=== PATIENT | female | born 1985 | race Caucasian/White ===

== ENCOUNTER 2018-08-02 10:03 | Emergency (ER) | payer SELFPAY ==
[~2018-08-02] VITALS: Ht 170.2 cm; Wt 86.0 kg
[~2018-08-02 10:03] MED LIST: OSEL75CA PO
--- NOTE | 2018-08-02 10:14 | PHYS DOC ---
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 EMS reports some seizure-like activity upon arrival. Patient was subsequently slightly confused which is now resolved. Denies history of prior seizures. Denies tongue laceration. Reports prior to this morning was feeling well. Patient reports she cannot recall events after patient was sitting on her sitting on the couch. He remembers waking up and noting paramedics and fire fighters helping her out to the ambulance. Patient denies any current drug or alcohol use. Reports she feels "weak and tired " at this time. Denies . Reports history of IUD. Review of Systems Review of Systems Constitutional: Denies fever or chills [] Eyes: Denies change in visual acuity, redness, or eye pain [] HENT: Denies nasal congestion or sore throat [] Respiratory: Denies cough or shortness of breath [] Cardiovascular: Denies chest pain or palpitation GI: Denies abdominal pain, nausea, vomiting, or diarrhea [] : Denies dysuria or hematuria [] Musculoskeletal: Denies back pain or joint pain [] Integument: Denies rash or skin lesions [] Neurologic: Denies headache, focal weakness or sensory changes; reports confusion Complete systems were reviewed and found to be within normal limits, except as documented in this note. Allergies Allergies Allergies Coded Allergies Type Severity Reaction Last Updated Verified morphine Allergy Intermediate rash 05/23/13 Yes Uncoded Allergies Type Severity Reaction Last Updated Verified NARCOTIC Adverse Reaction Unknown 06/09/15 Physical Exam Physical Exam Constitutional: Well developed, well nourished, no acute distress, non-toxic appearance. [] HENT: Normocephalic, atraumatic, bilateral TMs normal, oropharynx moist, tongue normal and without laceration Eyes: PERRL, EOMI, conjunctiva normal, no nystagmus Neck: Normal range of motion, no tenderness, supple, no meningeal signs Cardiovascular: Tachycardia, no murmur [] Lungs & Thorax: Bilateral breath sounds clear to auscultation [] Abdomen: Soft, no tenderness Skin: Warm, dry, no erythema, no rash. [] Extremities: No tenderness, ROM intact, no edema. [] Neurologic: Alert and oriented X 3, normal motor function, normal sensory function, no focal deficits noted. [] Psychologic: Affect normal, judgement normal, mood normal. [] EKG EKG @1043 Sinus tachycardia at 102bpm, NO ST elevation Radiology/Procedures Radiology/Procedures PROCEDURE: CT HEAD WO CONTRAST CT HEAD WO CONTRAST Clinical indications: seizure today COMPARISON: None available. Technique: Noncontrast axial cross sectional scanning of the head was performed. PQRS compliance Statement One or more of the following individualized dose reduction techniques were utilized for this study: 1. Automated exposure control 2. Adjustment of the mA and/or kV according to patient size 3. Use of iterative reconstruction technique Findings: No acute intracranial hemorrhage or midline shift or mass-effect or hydrocephalus or extra-axial fluid collection is seen. No focal hypodense area or sulci effacement is seen to indicate an acute infarct or edema radiographically. No skull fracture or pneumocephalus is seen. No opacification of the mastoid sinuses or the paranasal sinuses is seen. The maxillary sinuses are not completely seen in this study. Impression: No acute intracranial abnormality is seen. Electronically signed by: Ed Dalton MD (08/02/2018 10:39 AM) [id number] Course & Med Decision Making Course & Med Decision Making Pertinent Labs and Imaging studies reviewed. (See chart for details) Patient presents with concern for possible seizure like activity prior to arrival. Patient cannot recall full events. No signs of tongue laceration. Denies incontinence. No history of prior seizures. Patient currently neurologically intact. Labs obtained and posted to chart. Lactic acid slightly elevated. CT head without acute process. IVF hydration given. EKG stable. Orthostatic vital signs stable. Cannot fully exclude seizure. Patient stable for discharge with outpatient follow-up with PCP/neurologist. Neurology referral provided. Discussed findings and plan with patient and family , who acknowledge understanding and agreement. Dragon Disclaimer Dragon Disclaimer This electronic medical record was generated, in whole or in part, using a voice recognition dictation system. Departure Departure: Impression: Primary Impression: Seizure-like activity Additional Impression: Lactic acidosis Disposition: 01 HOME, SELF-CARE Condition: STABLE Referrals: ELIEL DISLA MD (PCP) ESTELLA KING MD Patient Instructions: Seizure, Adult, [id number] Additional Instructions: Discontinue use of tramadol as this can lower your seizure threshold. Also you must refrain from driving until cleared by your doctor or a neurologist. Scripts Butalb/Acetaminophen/Caffeine ([id number] 50-325-40) 1 Each Tablet 1 EACH PO Q6HRS PRN for HEADACHE, #14 TAB Prov: CATRACHITO VALENZUELA DO 08/02/18 Problem Qualifiers CATRACHITO VALENZUELA DO Aug 02, 2018 10:14
[2018-08-02] MEDS ORDERED: IV NORMAL SALINE 1,000ML 1,000 ML IV ONE ×2 (10:15→11:30)
[2018-08-02 10:39] LABS: BASO % 1 % (0-3); EOS # 0.1 x10^3/uL (0.0-0.7); EOS % 3 % (0-3); HEMATOCRIT 40.1 % (36.0-47.0); HEMOGLOBIN 13.5 g/dL (12.0-15.5); LYMPH # 1.3 x10^3/uL (1.0-4.8); LYMPH % 29 % (24-48); MEAN CORPUSCULAR HEMOGLOBIN 30 pg (25-35); MEAN CORPUSCULAR HGB CONC 34 g/dL (31-37); MEAN CORPUSCULAR VOLUME 89 fL (79-100); MONO # 0.4 x10^3/uL (0.0-1.1); MONO % 10 % (0-9); NEUT # 2.6 x10^3uL (1.8-7.7); NEUT % 58 % (31-73); PLATELET COUNT 204 x10^3/uL (140-400); RED BLOOD COUNT 4.53 x10^6/uL (3.50-5.40); RED CELL DISTRIBUTION WIDTH 13.3 % (11.5-14.5); WHITE BLOOD COUNT 4.5 x10^3/uL (4.0-11.0)
[2018-08-02] MEDS ORDERED: ONDANSETRON PF 4 MG/2 ML VIAL. IV ONE (10:40)
--- NOTE | 2018-08-02 10:42 | RAD ---
CT HEAD WO CONTRAST Clinical indications: seizure today COMPARISON: None available. Technique: Noncontrast axial cross sectional scanning of the head was performed. PQRS compliance Statement One or more of the following individualized dose reduction techniques were utilized for this study: 1. Automated exposure control 2. Adjustment of the mA and/or kV according to patient size 3. Use of iterative reconstruction technique Findings: No acute intracranial hemorrhage or midline shift or mass-effect or hydrocephalus or extra-axial fluid collection is seen. No focal hypodense area or sulci effacement is seen to indicate an acute infarct or edema radiographically. No skull fracture or pneumocephalus is seen. No opacification of the mastoid sinuses or the paranasal sinuses is seen. The maxillary sinuses are not completely seen in this study. Impression: No acute intracranial abnormality is seen. Electronically signed by: Ed Dalton MD (08/02/2018 10:39 AM) [id number]
[2018-08-02 10:53] LABS: ALBUMIN 3.4 g/dL (3.4-5.0); ALBUMIN/GLOBULIN RATIO 1.1 (1.0-1.7); CALCIUM 8.6 mg/dL (8.5-10.1); CREATININE 0.8 mg/dL (0.6-1.0); GFR 82.6; MAGNESIUM 1.8 mg/dL (1.8-2.4); POTASSIUM 3.5 mmol/L (3.5-5.1); TOTAL BILIRUBIN 0.3 mg/dL (0.2-1.0); TOTAL PROTEIN 6.6 g/dL (6.4-8.2)
--- NOTE | 2018-08-02 11:40 | EKG ---
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
[2018-08-02] MEDS ORDERED: KETOROLAC 15 MG/ML VIAL. IV ONE (11:45)
[2018-08-02 12:14] LABS: AMPHETAMINE/METHAMPHETAMINE POS (NEG); BARBITURATES NEG (NEG); BENZODIAZEPINES NEG (NEG); CANNABINOIDS NEG (NEG); COCAINE NEG (NEG); METHADONE NEG (NEG); OPIATES NEG (NEG); PHENCYCLIDINE NEG (NEG)
[2018-08-02 12:18] LABS: BACTERIA,URINE FEW /HPF (0-FEW); BILIRUBIN,URINE NEG (NEG); CLARITY,URINE CLEAR; COLOR,URINE YELLOW; GLUCOSE,URINE NEG (NEG); NITRITE,URINE NEG (NEG); RBC,URINE RARE /HPF (0-2); SQUAMOUS EPITHELIAL CELL,UR MOD /LPF; UROBILINOGEN,URINE 0.2 mg/dL (0.2 mg/dL); WBC,URINE RARE /HPF (0-4)
[2018-08-02 12:24] VITALS: BP 122/65
[2018-08-02] MEDS ORDERED: BUTA1TAB23 PO (12:30)
[2018-08-02] MEDS ORDERED: BUTALB/APAP/CAFEIN 50/325/40MG TABLET. PO ONE (12:45)
== END 2018-08-02 12:44 | disposition home or self-care (01) ==
LOC: ER 10:03
DX: R56.9 Unspecified convulsions (principal); E87.2 Acidosis; R41.0 Disorientation, unspecified; G89.29 Other chronic pain; M54.89 Other dorsalgia; Z87.891 Personal history of nicotine dependence; Z88.5 Allergy status to narcotic agent
CPT/HCPCS: 36415; 70450; 80053; 80307; 81001; 81025; 82550; 83605; 83735; 85025; 93005; 96361; 96374; 96375; 99284; G0480; J1885; J2405; J7030

== ENCOUNTER 2018-08-04 17:33 | Emergency (ER) | payer OTHER ==
[~2018-08-04] VITALS: Ht 167.6 cm; Wt 81.6 kg
[~2018-08-04 17:33] MED LIST changes: +BUTA1TAB23 PO
--- NOTE | 2018-08-04 17:42 | ED.ADGEN ---
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 I had a seizure the other day for no reason.. I was told I was shaking.. foaming at mouth.. had just passed out and hit my head.....Family said I was out of it for more 1/2 hour... they did a work up here.. that was on the .. but I continue to have a headache, dizzy, . .. I used to do drugs.. but have not for over 5 yrs... It just that I am worried. about me headache.."..or I ve got some changes in my brain..." HPI HPI Patient is a 32 year old female who presents with above hx with complaints of persistent headache, nausea, and dizziness, malaise since seizure on 08/02. Patient has had some coughing that has been nonproductive. Patient evaluated here at [facility] at that time CT did not show any acute findings. Patient does have poorly remote history of polysubstance abuse. Reports that her HIV checks have been negative. Patient denies any history of DVTs or pulmonary embolisms. Patient denies any cardiac history. Patient does not remember since before her seizure event. No recent travel. No specific ill contacts. Headache is somewhat generalized. Patient has had some muscle spasms and neck since the . There is a family history of her father late in lifeDeveloped DVTs coagulopathy CVAs pulmonary embolisms. Review of Systems Review of Systems Constitutional: Denies fever or chills [] Eyes: Denies change in visual acuity, redness, or eye pain [] HENT: Denies nasal congestion or sore throat [] Respiratory: Denies cough or shortness of breath [] Cardiovascular: No additional information not addressed in HPI [] GI: Denies abdominal pain, nausea, vomiting, bloody stools or diarrhea [] : Denies dysuria or hematuria [] Musculoskeletal: Denies back pain or joint pain [] Integument: Denies rash or skin lesions [] Neurologic: Complains of headache, and dizziness. Denies focal weakness or sensory changes [] Endocrine: Denies polyuria or polydipsia [] All other systems were reviewed and found to be within normal limits, except as documented in this note. Family History Family History Father had coagulopathy late in life. Current Medications Current Medications Current Medications Medications (Trade) Dose Ordered Sig/Morgan Start Time Stop Time Status Last Admin Dose Admin Acetaminophen (Tylenol) 1,000 mg 1X ONCE 08/04/18 20:00 08/04/18 20:01 DC 08/04/18 19:58 1,000 MG Info (Do NOT chart on this entry -- for MONITORING) 1 each PRN DAILY PRN 08/04/18 22:45 08/05/18 00:27 DC Iohexol (Omnipaque 350 Mg/ml) 100 ml 1X ONCE 08/04/18 22:45 08/04/18 22:46 DC 08/04/18 22:47 100 ML Ketorolac Tromethamine (Toradol Im) 60 mg 1X ONCE 08/04/18 23:45 08/04/18 23:46 DC 08/04/18 23:45 60 MG Lactated Ringer's 1,000 ml @ 1,000 mls/hr Q1H 08/04/18 18:56 08/04/18 19:55 DC 08/04/18 19:23 1,000 MLS/HR Lorazepam (Ativan) 2 mg 1X ONCE 08/05/18 00:15 08/05/18 00:16 DC Ondansetron HCl (Zofran) 8 mg 1X ONCE 08/04/18 20:30 08/04/18 20:31 DC 08/04/18 20:31 8 MG See nursing for home meds. Allergies Allergies Allergies Coded Allergies Type Severity Reaction Last Updated Verified morphine Allergy Intermediate rash 08/04/18 Yes Uncoded Allergies Type Severity Reaction Last Updated Verified NARCOTIC Adverse Reaction Unknown 06/09/15 Physical Exam Physical Exam Constitutional: Well developed, well nourished, no acute distress, non-toxic appearance. [] HENT: Normocephalic, atraumatic, bilateral external ears normal, oropharynx moist, no oral exudates, nose normal. [] Eyes: PERRLA, EOMI, conjunctiva normal, no discharge. [] Neck: Normal range of motion, no tenderness, supple, no stridor. [] Cardiovascular:Heart rate regular rhythm, no murmur [] Lungs & Thorax: Bilateral breath sounds at apexes scattered wheezes on auscultation [] Abdomen: Bowel sounds normal, soft, no tenderness, no masses, no pulsatile masses. []Old surgery scars. Skin: Warm, dry, no erythema, no rash. [Has multiple areas of bony points bruising on skin. Appears to be old. Does have findings of old IV injection scars. Back: No tenderness, no CVA tenderness. [] Extremities: Left knee tenderness, no cyanosis, no clubbing, ROM intact, left knee edema. [] Does have findings of tenderness in left knee with obvious ecchymosis. Ligaments appear to be generally stable. There is pain with range of motion but patient is ambulatory without difficulty. No cording appreciated. Neurologic: Alert and oriented X 3, normal motor function, normal sensory function, no focal deficits noted. []DTRs +2 at patella and brachial. 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 No drift. Psychologic: Affect anxious, judgement normal, mood normal. [] Current Patient Data Vital Signs Vital Signs Date Time Temp Pulse Resp B/P (MAP) Pulse Ox O2 Delivery O2 Flow Rate FiO2 08/04/18 20:33 81 18 138/79 (98) 100 Room Air 08/04/18 19:16 98.0 Lab Results Laboratory Tests Test 08/04/18 18:25 08/04/18 18:35 08/04/18 18:55 08/04/18 19:10 Prothrombin Time 9.5 SEC (9.4-11.4) Prothrombin Time INR 1.0 (0.9-1.1) PTT 24 SEC (23-33) D-Dimer (Emely) 0.90 mg/L (0.00-0.50) H White Blood Count 6.2 x10^3/uL (4.0-11.0) Red Blood Count 4.53 x10^6/uL (3.50-5.40) Hemoglobin 13.8 g/dL (12.0-15.5) Hematocrit 40.8 % (36.0-47.0) Mean Corpuscular Volume 90 fL (79-100) Mean Corpuscular Hemoglobin 30 pg (25-35) Mean Corpuscular Hemoglobin Concent 34 g/dL (31-37) Red Cell Distribution Width 13.6 % (11.5-14.5) Platelet Count 219 x10^3/uL (140-400) Neutrophils (%) (Auto) 60 % (31-73) Lymphocytes (%) (Auto) 28 % (24-48) Monocytes (%) (Auto) 8 % (0-9) Eosinophils (%) (Auto) 4 % (0-3) H Basophils (%) (Auto) 1 % (0-3) Neutrophils # (Auto) 3.7 x10^3uL (1.8-7.7) Lymphocytes # (Auto) 1.7 x10^3/uL (1.0-4.8) Monocytes # (Auto) 0.5 x10^3/uL (0.0-1.1) Eosinophils # (Auto) 0.3 x10^3/uL (0.0-0.7) Basophils # (Auto) 0.0 x10^3/uL (0.0-0.2) Erythrocyte Sedimentation Rate 8 (0-25) Troponin I Quantitative < 0.017 ng/mL (0-0.055) Sodium Level 142 mmol/L (136-145) Potassium Level 3.9 mmol/L (3.5-5.1) Chloride Level 106 mmol/L (98-107) Carbon Dioxide Level 30 mmol/L (21-32) Anion Gap 6 (6-14) Blood Urea Nitrogen 6 mg/dL (7-20) L Creatinine 0.7 mg/dL (0.6-1.0) Estimated GFR (Cockcroft-Gault) 96.4 Glucose Level 81 mg/dL (70-99) Calcium Level 8.5 mg/dL (8.5-10.1) Magnesium Level 1.8 mg/dL (1.8-2.4) Total Bilirubin 0.1 mg/dL (0.2-1.0) L Direct Bilirubin 0.1 mg/dL (0.0-0.2) Aspartate Amino Transferase (AST) 19 U/L (15-37) Alanine Aminotransferase (ALT) 16 U/L (14-59) Alkaline Phosphatase 73 U/L (46-116) Creatine Kinase 52 U/L (26-192) TP-Cco-L-Type Natriuretic Peptide 18 pg/mL (0-124) Total Protein 6.4 g/dL (6.4-8.2) Albumin 3.1 g/dL (3.4-5.0) L Lipase 75 U/L (73-393) Test 08/04/18 19:20 08/04/18 19:49 Urine Collection Type Unknown Urine Color Yellow Urine Clarity Clear Urine pH 7.0 Urine Specific [place] 1.010 Urine Protein Neg (NEG-TRACE) Urine Glucose (UA) Neg mg/dL (NEG) Urine Ketones (Stick) Trace mg/dL (NEG) Urine Blood Neg (NEG) Urine Nitrite Neg (NEG) Urine Bilirubin Neg (NEG) Urine Urobilinogen Dipstick 0.2 mg/dL (0.2 mg/dL) Urine Leukocyte Esterase Neg (NEG) Urine RBC 0 /HPF (0-2) Urine WBC 0 /HPF (0-4) Urine Squamous Epithelial Cells Few /LPF Urine Bacteria 0 /HPF (0-FEW) Urine Opiates Screen Neg (NEG) Urine Methadone Screen Neg (NEG) Urine Barbiturates Pos (NEG) Urine Phencyclidine Screen Neg (NEG) Urine Amphetamine/Methamphetamine Pos (NEG) Urine Benzodiazepines Screen Neg (NEG) Urine Cocaine Screen Neg (NEG) Urine Cannabinoids Screen Neg (NEG) Urine Ethyl Alcohol Neg (NEG) POC Urine HCG, Qualitative hcg negative (Negative) EKG EKG My interpretation of EKG shows sinus rhythm at rate 76/m[]. Has some nonspecific contour abnormalities in the anterior lateral leads. But no findings acute STEMI of contralateral changes Radiology/Procedures Radiology/Procedures I interpretation chest x-ray shows no acute cardio pulmonary findings. CT of head shows no acute interval changes. No shift, mass, edema, bleed, or fracture. See formal report when available. CT of chest shows no pulmonary embolism. Does have findings of suspect aspiration and right upper lobe. Patient does have an abnormality in the course of her right subclavian which passes posterior to her esophagus. See formal report when available. Course & Med Decision Making Course & Med Decision Making Pertinent Labs and Imaging studies reviewed. (See chart for details). Patient follow-up primary care. Patient not to drive until follow-up with neurology in primary care. Patient not then brought the involving has just activity for seizure disorder. Patient avoid any drug use. Patient return if any concerns. Must keep follow-ups. [] Final Impression Final Impression 1. Hx Seizure 2. Hx. Head Injury 3. Post Concussion Syndrome 4. Aspiration Pneumonitis 5. Mild elevation in d-dimer 0.90-suspect related to bruising on 6. Drug screen positive for amphetamine. [] Dragon Disclaimer Dragon Disclaimer This electronic medical record was generated, in whole or in part, using a voice recognition dictation system. Dragon Disclaimer This chart was dictated in whole or in part using Voice Recognition software in a busy, high-work load, and often noisy Emergency Department environment. It may contain unintended and wholly unrecognized errors or omissions. Discharge Summary Visit Information Final Diagnosis Problems Medical Problems: (1) Concussion Status: Acute (2) Seizure Status: Acute Brief Hospital Course Allergies Allergies Coded Allergies Type Severity Reaction Last Updated Verified morphine Allergy Intermediate rash 08/04/18 Yes Uncoded Allergies Type Severity Reaction Last Updated Verified NARCOTIC Adverse Reaction Unknown 06/09/15 Vital Signs Vital Signs Date Time Temp Pulse Resp B/P (MAP) Pulse Ox O2 Delivery O2 Flow Rate FiO2 08/04/18 20:33 81 18 138/79 (98) 100 Room Air 08/04/18 19:16 98.0 Lab Results Laboratory Tests Test 08/04/18 18:25 08/04/18 18:35 08/04/18 18:55 08/04/18 19:10 Prothrombin Time 9.5 SEC (9.4-11.4) Prothromb Time International Ratio 1.0 (0.9-1.1) Activated Partial Thromboplast Time 24 SEC (23-33) D-Dimer (Emely) 0.90 mg/L (0.00-0.50) White Blood Count 6.2 x10^3/uL (4.0-11.0) Red Blood Count 4.53 x10^6/uL (3.50-5.40) Hemoglobin 13.8 g/dL (12.0-15.5) Hematocrit 40.8 % (36.0-47.0) Mean Corpuscular Volume 90 fL (79-100) Mean Corpuscular Hemoglobin 30 pg (25-35) Mean Corpuscular Hemoglobin Concent 34 g/dL (31-37) Red Cell Distribution Width 13.6 % (11.5-14.5) Platelet Count 219 x10^3/uL (140-400) Neutrophils (%) (Auto) 60 % (31-73) Lymphocytes (%) (Auto) 28 % (24-48) Monocytes (%) (Auto) 8 % (0-9) Eosinophils (%) (Auto) 4 % (0-3) Basophils (%) (Auto) 1 % (0-3) Neutrophils # (Auto) 3.7 x10^3uL (1.8-7.7) Lymphocytes # (Auto) 1.7 x10^3/uL (1.0-4.8) Monocytes # (Auto) 0.5 x10^3/uL (0.0-1.1) Eosinophils # (Auto) 0.3 x10^3/uL (0.0-0.7) Basophils # (Auto) 0.0 x10^3/uL (0.0-0.2) Erythrocyte Sedimentation Rate 8 (0-25) Troponin I Quantitative < 0.017 ng/mL (0-0.055) Sodium Level 142 mmol/L (136-145) Potassium Level 3.9 mmol/L (3.5-5.1) Chloride Level 106 mmol/L (98-107) Carbon Dioxide Level 30 mmol/L (21-32) Anion Gap 6 (6-14) Blood Urea Nitrogen 6 mg/dL (7-20) Creatinine 0.7 mg/dL (0.6-1.0) Estimated GFR (Cockcroft-Gault) 96.4 Glucose Level 81 mg/dL (70-99) Calcium Level 8.5 mg/dL (8.5-10.1) Magnesium Level 1.8 mg/dL (1.8-2.4) Total Bilirubin 0.1 mg/dL (0.2-1.0) Direct Bilirubin 0.1 mg/dL (0.0-0.2) Aspartate Amino Transf (AST/SGOT) 19 U/L (15-37) Alanine Aminotransferase (ALT/SGPT) 16 U/L (14-59) Alkaline Phosphatase 73 U/L (46-116) Creatine Kinase 52 U/L (26-192) SJ-Gao-T-Type Natriuretic Peptide 18 pg/mL (0-124) Total Protein 6.4 g/dL (6.4-8.2) Albumin 3.1 g/dL (3.4-5.0) Lipase 75 U/L (73-393) Test 08/04/18 19:20 08/04/18 19:49 Urine Collection Type Unknown Urine Color Yellow Urine Clarity Clear Urine pH 7.0 Urine Specific [place] 1.010 Urine Protein Neg (NEG-TRACE) Urine Glucose (UA) Neg mg/dL (NEG) Urine Ketones (Stick) Trace mg/dL (NEG) Urine Blood Neg (NEG) Urine Nitrite Neg (NEG) Urine Bilirubin Neg (NEG) Urine Urobilinogen Dipstick 0.2 mg/dL (0.2 mg/dL) Urine Leukocyte Esterase Neg (NEG) Urine RBC 0 /HPF (0-2) Urine WBC 0 /HPF (0-4) Urine Squamous Epithelial Cells Few /LPF Urine Bacteria 0 /HPF (0-FEW) Urine Opiates Screen Neg (NEG) Urine Methadone Screen Neg (NEG) Urine Barbiturates Pos (NEG) Urine Phencyclidine Screen Neg (NEG) Urine Amphetamine/Methamphetamine Pos (NEG) Urine Benzodiazepines Screen Neg (NEG) Urine Cocaine Screen Neg (NEG) Urine Cannabinoids Screen Neg (NEG) Urine Ethyl Alcohol Neg (NEG) Bedside Urine HCG, Qualitative hcg negative (Negative) Brief Hospital Course Ms. Chisholm is a 32 old female who presented with continue headache since seizure on 08/02. Patient does have scheduled follow-up with neurology. Patient does have scheduled follow-up with her primary care. Discharge Information Condition at Discharge: Improved, Stable Disposition/Orders: D/C to Home Dischare Medications Current Medications Lactated Ringer's 1,000 ml @ 1,000 mls/hr Q1H IV Last administered on at 19:23; Admin Dose 1,000 MLS/HR; Start 08/04/18 at 18:56; Stop 08/04/18 at 19:55; Status DC Acetaminophen (Tylenol) 1,000 mg 1X ONCE PO Last administered on 08/04/18at 19: 58; Admin Dose 1,000 MG; Start 08/04/18 at 20:00; Stop 08/04/18 at 20:01; Status DC Ondansetron HCl (Zofran) 8 mg 1X ONCE IV Last administered on 08/04/18at 20:31 ; Admin Dose 8 MG; Start 08/04/18 at 20:30; Stop 08/04/18 at 20:31; Status DC Iohexol (Omnipaque 350 Mg/ml) 100 ml 1X ONCE IV Last administered on at 22:47; Admin Dose 100 ML; Start 08/04/18 at 22:45; Stop 08/04/18 at 22:46; Status DC Info (Do NOT chart on this entry -- for MONITORING) 1 each PRN DAILY PRN MC SEE COMMENTS; Start 08/04/18 at 22:45; Stop 08/05/18 at 00:27; Status DC Ketorolac Tromethamine (Toradol Im) 60 mg 1X ONCE IM ; Start 08/04/18 at 23:30 ; Stop 08/04/18 at 23:31; Status UNV Ketorolac Tromethamine (Toradol Im) 60 mg 1X ONCE IM Last administered on 08/04at 23:45; Admin Dose 60 MG; Start 08/04/18 at 23:45; Stop 08/04/18 at 23:46; Status DC Lorazepam (Ativan) 2 mg 1X ONCE PO ; Start 08/05/18 at 00:15; Stop 08/05/18 at 00:16; Status DC Active Scripts Active [id number] 50-325-40 (Butalb/Acetaminophen/Caffeine) 1 Each Tablet 1 Each PO Q6HRS PRN Reported No Known Medications Prior To Admisstion (Info) Each 1 Each JEANIE SANCHEZ MD Aug 04, 2018 17:42
[2018-08-04] MEDS ORDERED: IV RINGERS SOLUTION,LACTATED 1,000 ML IV SCH (18:56)
[2018-08-04 19:05] LABS: BASO % 1 % (0-3); EOS # 0.3 x10^3/uL (0.0-0.7); EOS % 4 % (0-3); HEMATOCRIT 40.8 % (36.0-47.0); HEMOGLOBIN 13.8 g/dL (12.0-15.5); LYMPH # 1.7 x10^3/uL (1.0-4.8); LYMPH % 28 % (24-48); MEAN CORPUSCULAR HEMOGLOBIN 30 pg (25-35); MEAN CORPUSCULAR HGB CONC 34 g/dL (31-37); MEAN CORPUSCULAR VOLUME 90 fL (79-100); MONO # 0.5 x10^3/uL (0.0-1.1); MONO % 8 % (0-9); NEUT # 3.7 x10^3uL (1.8-7.7); NEUT % 60 % (31-73); PLATELET COUNT 219 x10^3/uL (140-400); RED BLOOD COUNT 4.53 x10^6/uL (3.50-5.40); RED CELL DISTRIBUTION WIDTH 13.6 % (11.5-14.5); WHITE BLOOD COUNT 6.2 x10^3/uL (4.0-11.0)
[2018-08-04 19:44] LABS: ALBUMIN 3.1 g/dL (3.4-5.0); CALCIUM 8.5 mg/dL (8.5-10.1); CREATININE 0.7 mg/dL (0.6-1.0); DIRECT BILIRUBIN 0.1 mg/dL (0.0-0.2); GFR 96.4; MAGNESIUM 1.8 mg/dL (1.8-2.4); POTASSIUM 3.9 mmol/L (3.5-5.1); TOTAL BILIRUBIN 0.1 mg/dL (0.2-1.0); TOTAL PROTEIN 6.4 g/dL (6.4-8.2)
[2018-08-04] MEDS ORDERED: ACETAMINOPHEN 500 MG TABLET PO ONE (20:00)
[2018-08-04 20:14] LABS: AMPHETAMINE/METHAMPHETAMINE POS (NEG); BARBITURATES POS (NEG); BENZODIAZEPINES NEG (NEG); CANNABINOIDS NEG (NEG); COCAINE NEG (NEG); METHADONE NEG (NEG); OPIATES NEG (NEG); PHENCYCLIDINE NEG (NEG)
[2018-08-04 20:18] LABS: BACTERIA,URINE 0 /HPF (0-FEW); BILIRUBIN,URINE NEG (NEG); CLARITY,URINE CLEAR; COLOR,URINE YELLOW; GLUCOSE,URINE NEG (NEG); NITRITE,URINE NEG (NEG); RBC,URINE 0 /HPF (0-2); SQUAMOUS EPITHELIAL CELL,UR FEW /LPF; UROBILINOGEN,URINE 0.2 mg/dL (0.2 mg/dL); WBC,URINE 0 /HPF (0-4)
[2018-08-04 20:28] LABS: SEDIMENTATION RATE 8 (0-25)
[2018-08-04] MEDS ORDERED: ONDANSETRON PF 4 MG/2 ML VIAL. IV ONE (20:30)
--- NOTE | 2018-08-04 20:35 | RAD ---
CT head and cervical spine without contrast History: SEIZURE, FALL X 2 DAYS AGO, HEADACHE, NECK PAIN, DIZZINESS, nausea and vomiting Technique: Noncontrast CT imaging was performed of the head and cervical spine. Multiplanar reconstruction images are submitted. Exposure: One or more of the following individualized dose reduction techniques were utilized for this examination: 1. Automated exposure control 2. Adjustment of the mA and/or kV according to patient size 3. Use of iterative reconstruction technique. Head CT Comparison: 08/02/2018 Findings: No acute extra-axial or parenchymal hemorrhage is identified. There is no significant intra-axial mass effect, midline shift, or extra-axial fluid collection. The erazo-white differentiation of the major vascular territories is preserved. The ventricles, sulci, and cisterns are within normal limits in size and configuration. The mastoid air cells and the visualized paranasal sinuses are aerated. There is no significant focal calvarial abnormality. Impression: 1. No acute intracranial abnormality is identified. Cervical spine CT Comparison: None Findings: No acute cervical spine fracture is identified. Vertebral body stature and AP alignment are within normal limits. Atlanto-axial distance is within normal limits. There is appropriate alignment of lateral masses of C1 relative to C2. Occipital condylar-C1 relationship is maintained. Impression: 1. No acute cervical spine fracture is identified. Electronically signed by: Beny Weaver MD (08/04/2018 8:32 PM) [facility]
[2018-08-04] MEDS ORDERED: IOHEXOL 350 MG/ML 100 ML VIAL. IV ONE (22:45)
[2018-08-04] MEDS ORDERED: CONTRAST GIVEN MC PRN (22:45)
[2018-08-04 23:27] VITALS: BP 136/84
[2018-08-04] MEDS ORDERED: KETOROLAC 60 MG/2 ML VIAL. IM ONE ×2 (23:30→23:45)
--- NOTE | 2018-08-04 23:42 | RAD ---
PQRS Compliance Statement: One or more of the following individualized dose reduction techniques were utilized for this examination: 1. Automated exposure control 2. Adjustment of the mA and/or kV according to patient size 3. Use of iterative reconstruction technique CT angiography chest with contrast 08/04/2018 10:48 PM INDICATION: Elevated d-dimer, syncope COMPARISON: None available TECHNIQUE: Axial CT images of the chest were obtained after the intravenous administration of nonionic contrast. Coronal and sagittal reformats are provided. Maximum intensity projection images of the thoracic vasculature are provided. 10-15 cc contrast infiltrated into the right forearm. RN was notified. FINDINGS: The thyroid gland is normal in appearance. There are no pathologically enlarged axillary, mediastinal or hilar lymph nodes. The heart size is within normal limits. No significant pericardial effusion. Thoracic aorta is normal in course and caliber. Aberrant right subclavian artery with retroesophageal course. Residual thymic soft tissue is noted with amorphous triangular soft tissue attenuation in the anterior superior mediastinum. There is adequate opacification of the pulmonary arterial system. There there are no filling defects within the pulmonary arterial system to suggest acute or chronic pulmonary embolus. Tree-in-bud nodular airspace disease is identified in the superior segment left lower lobe. Solid noncalcified pulmonary nodules in this region measure up to 4 mm. There are no pleural effusions. No pulmonary vascular congestion or pneumothorax. Visualized portions of the upper abdomen are within normal limits. Postoperative changes are identified from gastric bypass surgery. No suspicious osseous lesions are visualized. IMPRESSION: There is no evidence for acute or chronic pulmonary embolism. Superior segment left lower lobe tree-in-bud nodular airspace disease most favors an infectious/inflammatory pneumonitis. Consideration may be given for aspiration pneumonitis in the setting of recent syncope. There is apparent course of the right subclavian artery with retroesophageal course. 10-15 cc contrast infiltrated into the right forearm. RN was notified. Electronically signed by: Michelle Malik MD (08/04/2018 11:39 PM) [facility]
[2018-08-05] MEDS ORDERED: LORazepam 1 MG TABLET PO ONE (00:15)
--- NOTE | 2018-08-05 22:56 | EKG ---
[address] [address] Test Date: 2018-08-04 Test Time: 19:23:18 Pat Name: RAMONITA DELCID Department: Room: Gender: F Rn Lactation: URIAH : 1985 Requested By: JEANIE SANCHEZ Order Number: [id number] Reading MD: Bang Garrison Measurements Intervals [place] Rate: 76 P: 45 NE: 162 QRS: 31 QRSD: 102 T: 29 QT: 368 QTc: 418 Interpretive Statements SINUS RHYTHM QRS(T) CONTOUR ABNORMALITY CONSIDER ANTEROLATERAL MYOCARDIAL DAMAGE POSSIBLY ABNORMAL ECG Electronically Signed On 08-16-2018 10:13:36 [employer] by Bang Garrison
--- NOTE | 2018-08-08 13:12 | RAD ---
CHEST PA LATERAL History: Syncope, elevated d-dimer Comparison: Two-view chest, May 20172014. Findings: The cardiomediastinal silhouette is normal. Pulmonary vasculature is normal. The lungs are clear. No pleural effusion or pneumothorax is seen. There is no acute bone abnormality. IMPRESSION: No acute cardiopulmonary process. Electronically signed by: Davidson Lowry MD (08/08/2018 1:09 PM) [id number]
== END 2018-08-05 00:05 | disposition home or self-care (01) ==
LOC: ER 17:33
DX: R51 Headache (principal); F07.81 Postconcussional syndrome; J69.0 Pneumonitis due to inhalation of food and vomit; R79.1 Abnormal coagulation profile; G43.909 Migraine, unspecified, not intractable, without status migrainosus; G89.29 Other chronic pain; M54.89 Other dorsalgia; F15.90 Other stimulant use, unspecified, uncomplicated; Z90.49 Acquired absence of other specified parts of digestive tract; Z98.890 Other specified postprocedural states; Z87.891 Personal history of nicotine dependence; Z88.5 Allergy status to narcotic agent
CPT/HCPCS: 36415; 70450; 71046; 71275; 72125; 80048; 80076; 80307; 81001; 81025; 82550; 83690; 83735; 83880; 84443; 84484; 85025; 85379; 85610; 85651; 85730; 93005; 96361; 96372; 96374; 99284; J1885; J2405; J7120; Q9967

== ENCOUNTER 2021-02-01 09:27 | Emergency (ER) | payer MEDICAID, OTHER ==
[~2021-02-01] VITALS: Ht 167.6 cm; Wt 105.2 kg
[2021-02-01] MEDS ORDERED: IV NORMAL SALINE 1,000ML 1,000 ML IV ONE (10:15)
--- NOTE | 2021-02-01 10:34 | PHYS DOC ---
Past History Past Medical History: Migraines, Pneumonia, Other Additional Past Medical Histor: chronic back (MILAN CLEMENS APRN) Past Surgical History: Cholecystectomy, , Gastric Bypass, Other Additional Past Surgical Histo: thoracotomy (MILAN CLEMENS APRN) Smoking: Quit Greater Than 1 Year Alcohol Use: None Drug Use: Amphetamine, Heroin, Marijuana, Opiates (MILAN CLEMENS APRN) General Adult EDM: Chief Complaint: DIARRHEA HPI: HPI: Patient is a 35-year-old female who presents to the ER for diarrhea and black tarry stools that started last night. Patient reports for the last 2 days she has been constipated and has used laxatives and milk of magnesia. Patient has a history of gastric bypass and ulcers. Patient reports that she is not supposed to use ibuprofen but has been using it frequently. Patient denies nausea, vomiting, fevers, abdominal pain, urinary symptoms or lightheadedness. (MILAN CLEMENS APRN) Review of Systems: Review of Systems: 14 body systems of the review of systems have been reviewed. See HPI for pertinent positive and negative responses, otherwise all other systems are negative, nonpertinent or noncontributory (MILAN CLEMENS APRN) Current Medications: Current Meds: Current Medications Medications (Trade) Dose Ordered Sig/Morgan Start Time Stop Time Status Last Admin Dose Admin Sodium Chloride 1,000 ml @ 1,000 mls/hr 1X ONCE 02/01/21 10:15 02/01/21 11:14 (MILAN CLEMENS APRN) Allergies: Allergies: Allergies Coded Allergies Type Severity Reaction Last Updated Verified morphine Allergy Intermediate rash 08/04/18 Yes Uncoded Allergies Type Severity Reaction Last Updated Verified NARCOTIC Adverse Reaction Unknown 06/09/15 (MILAN CLEMENS APRN) Physical Exam: PE: Constitutional: Well developed, well nourished, no acute distress, non-toxic appearance. [] HENT: Normocephalic, atraumatic Eyes: PERRL, EOMI, conjunctiva normal, no discharge. [] Neck: Normal range of motion, no stridor Cardiovascular:Heart rate regular rhythm, no murmur [] Lungs & Thorax: Bilateral breath sounds clear to auscultation [] Abdomen: Bowel sounds normal, soft, no tenderness, no masses, no pulsatile masses, stool sample appears to be black and tarry. [] Skin: Warm, dry, no erythema, no rash. [] Back: Normal range of motion Extremities: No tenderness, no cyanosis, no clubbing, ROM intact, no edema. [] Neurologic: Alert and oriented X 3, normal motor function, normal sensory function, no focal deficits noted. [] Psychologic: Affect normal, judgement normal, mood normal. [] (MILAN CLEMENS APRN) Current Patient Data: Labs: Laboratory Tests Test 02/01/21 10:05 02/01/21 10:10 02/01/21 10:23 02/01/21 10:25 Urine Collection Type Unknown Urine Color Yellow Urine Clarity Clear Urine pH 5.0 Urine Specific [place] 1.015 Urine Protein Neg Urine Glucose (UA) Neg mg/dL Urine Ketones (Stick) 15 mg/dL Urine Blood Neg Urine Nitrite Neg Urine Bilirubin Neg Urine Urobilinogen Dipstick 0.2 mg/dL Urine Leukocyte Esterase Neg Urine RBC 0 /HPF Urine WBC Occ /HPF Urine Squamous Epithelial Cells Few /LPF Urine Bacteria 0 /HPF Stool Occult Blood Negative Bedside Urine HCG, Qualitative hcg negative White Blood Count 6.1 x10^3/uL Red Blood Count 3.93 x10^6/uL Hemoglobin 11.3 g/dL Hematocrit 34.4 % Mean Corpuscular Volume 87 fL Mean Corpuscular Hemoglobin 29 pg Mean Corpuscular Hemoglobin Concent 33 g/dL Red Cell Distribution Width 14.3 % Platelet Count 281 x10^3/uL Neutrophils (%) (Auto) 66 % Lymphocytes (%) (Auto) 26 % Monocytes (%) (Auto) 7 % Eosinophils (%) (Auto) 1 % Basophils (%) (Auto) 1 % Neutrophils # (Auto) 4.1 x10^3uL Lymphocytes # (Auto) 1.6 x10^3/uL Monocytes # (Auto) 0.4 x10^3/uL Eosinophils # (Auto) 0.1 x10^3/uL Basophils # (Auto) 0.0 x10^3/uL Sodium Level 140 mmol/L Potassium Level 3.9 mmol/L Chloride Level 105 mmol/L Carbon Dioxide Level 28 mmol/L Anion Gap 7 Blood Urea Nitrogen 27 mg/dL Creatinine 0.8 mg/dL Estimated GFR (Cockcroft-Gault) 81.2 BUN/Creatinine Ratio 34 Glucose Level 97 mg/dL Calcium Level 8.3 mg/dL Total Bilirubin 0.2 mg/dL Aspartate Amino Transf (AST/SGOT) 18 U/L Alanine Aminotransferase (ALT/SGPT) 18 U/L Alkaline Phosphatase 87 U/L Total Protein 6.6 g/dL Albumin 3.4 g/dL Albumin/Globulin Ratio 1.1 Current Medications Medications (Trade) Dose Ordered Sig/Morgan Route PRN Reason Start Time Stop Time Status Last Admin Dose Admin Sodium Chloride 1,000 ml @ 1,000 mls/hr 1X ONCE IV 02/01/21 10:15 02/01/21 11:14 DC 02/01/21 10:33 Iohexol (Omnipaque 300 Mg/ml) 75 ml 1X ONCE IV 02/01/21 10:45 02/01/21 10:46 DC Info (Do NOT chart on this entry -- for MONITORING) 1 each PRN DAILY PRN MC SEE COMMENTS 02/01/21 10:45 02/03/21 10:44 Laboratory Tests Test 02/01/21 10:23 POC Urine HCG, Qualitative hcg negative (Negative) Vital Signs: Vital Signs Date Time Temp Pulse Resp B/P (MAP) Pulse Ox O2 Delivery O2 Flow Rate FiO2 02/01/21 09:50 98.0 85 20 147/94 100 Room Air (MILAN CLEMENS APRN) EKG: EKG: [] (MILAN CLEMENS APRN) Radiology/Procedures: Radiology/Procedures: PROCEDURE: CT ABD PELV W/ IV CONTRST ONLY CT ABDOMEN+PELVIS W History: Reason: diarrhea, blood in stools / Spl. Instructions: / History: Technique: CT abdomen pelvis with contrast. Coronal and sagittal reconstructions were performed. Exposure: One or more of the following individualized dose reduction techniques were utilized for this examination: 1. Automated exposure control 2. Adjustment of the mA and/or kV according to patient size 3. Use of iterative reconstruction technique. Comparison: None Findings: Lower chest: Mild left lower lobe and lingular linear atelectasis. Abdomen and pelvis: Postoperative changes gastric bypass. Minimal fluid within the gastric remnant. The liver, spleen, adrenal glands, and pancreas are unremarkable. Prior cholecystectomy. Mild intrahepatic biliary ductal dilatation, likely within normal range for postcholecystectomy state. Small right renal hypodensities measures 0.4 cm, likely cysts. No hydronephrosis. No renal calculus. Decompressed urinary bladder. Normal appendix. No evidence of bowel obstruction. No pathologic lymphadenopathy. No ascites. IUD noted within the upper endometrial canal. Several small follicles within the ovaries. Bones: Heterogeneous appearance of the left superior pubic ramus and pubic body. No acute fracture. Multilevel lumbar spinal stenosis most prominent L3-L4 and L4-L5. Impression: 1. No acute abdominal or pelvic pathology. Electronically signed by: Les Lou DO (02/01/2021 11:23 AM) [id number] DICTATED AND SIGNED BY: LES LOU DO DATE: 02/01/21 1115 CC: MILAN CLEMENS APRN; LEWIS SCHAFFER MD ~MTH0 0[] (MILAN CLEMENS APRN) Heart Score: C/O Chest Pain: No Risk Factors: Risk Factors: DM, Current or recent (<one month) smoker, HTN, HLP, family history of CAD, obesity. Risk Scores: Score 0 - 3: 2.5% MACE over next 6 weeks - Discharge Home Score 4 - 6: 20.3% MACE over next 6 weeks - Admit for Clinical Observation Score 7 - 10: 72.7% MACE over next 6 weeks - Early Invasive Strategies (MILAN CLEMENS APRN) Course & Med Decision Making: Course & Med Decision Making Pertinent Labs and Imaging studies reviewed. (See chart for details) Patient is a 35-year-old female being seen in the ER for diarrhea and black tarry stools. Consisted of blood work, urinalysis, stool occult, and CT scan of abdomen. Patient was treated in the ER with normal saline. Patient's vital signs are stable in the ER she is not tachycardic or hypotensive. Patient's work-up in the ER was unremarkable. Her stool was negative for any occult blood. Her CT scan of her abdomen was unremarkable. I discussed with patient all findings and diagnostic testing as well as the need to follow-up with PCP for further evaluation and treatment or return to the ER if any new or worsening symptoms. Strict return precautions were also discussed at length. Patient voiced understanding and agreement with the plan. Patient is hemodynamically stable at the time of disposition. (MILAN CLEMENS APRN) Dragon Disclaimer: Dragon Disclaimer: This electronic medical record was generated, in whole or in part, using a voice recognition dictation system. (MILAN CLEMENS APRN) Attending Co-Sign The patient was seen and interviewed as well as examined at the bedside. The chart was reviewed. The case was discussed. Agree with the plan of care. (IRIS LUCAS DO) Departure Departure: Impression: Primary Impression: Dark stools Disposition: HOME / SELF CARE / HOMELESS Condition: GOOD Referrals: LEWIS SCHAFFER MD (PCP) Patient Instructions: Constipation, Adult Additional Instructions: You were seen in the ER for dark tarry stools. Your physical exam was reassuring and your vital signs were stable. Your work-up in the ER was unremarkable. Your fecal occult was negative for any blood. Your CT scan was unremarkable. Make sure that you are eating a high-fiber diet. Please discontinue your use of ibuprofen. Increase your fluids. Adding MiraLAX to your daily regimen may be helpful for you. Please follow-up with your primary care provider tomorrow regarding your ER visit. Please return to the ER if you develop abdominal pain, blood in your stools or vomit, intractable nausea or vomiting, high fevers refractory to treatment, lightheadedness. EMERGENCY DEPARTMENT GENERAL DISCHARGE INSTRUCTIONS Thank you for coming to [facility] (ED) today and trusting us with you care. We trust that you had a positivie experience in our Emergency Department. If you wish to speak to the department management, you may call the director at [phone]. YOUR FOLLOW UP INSTRUCTIONS ARE FOLLOWS: 1. Do you have a private Doctor? If you do not have a private doctor, please ask for a resource list of physicians or clinics that may be able to assist you with follow up care. 2. The Emergency Physician has interpreted your x-rays. The X-Ray specialist will also review them. If there is a change in the findings, you will be notified in 48 hours when at all possible. 3. A lab test or culture has been done, your results will be reviewed and you will be notified if you need a change in treatment. ADDITIONAL INSTRUCTIONS AND INFORMATION: 1. Your care today has been supervised by a physician who is specially trained in emergency care. Many problems require more than one evaluation for a complete diagnosis and treatment. We recommend that you schedule your follow up appointment as recommended to ensure complete treatment of you illness or injury. If you are unable to obtain follow up care and continue to have a problem, or if your condition worsens, we recommend that you return to the ED. 2. We are not able to safely determine your condition over the phone nor are we able to give sound medical advice over the phone. For these safety reasons, if you call for medical advice we will ask you to come to the ED for further evaluation. 3. If you have any questions regarding these discharge instructions please call the ED at [phone]. SAFETY INFORMATION: In the interest of safety, wellness, and injury prevention; we encourage you to wear your sealbelt, if you smoke; quite smoking, and we encourage family to use a protective helmet for bicycling and other sporting events that present an increased risk for head injury. IF YOUR SYMPTOMS WORSEN OR NEW SYMPTOMS DEVELOP, OR YOU HAVE CONCERNS ABOUT YOUR CONDITION; OR IF YOUR CONDITION WORSENS WHILE YOU ARE WAITING FOR YOUR FOLLOW UP APPOINTMENT; EITHER CONTACT YOUR PRIMARY CARE DOCTOR, THE PHYSICIAN WHOSE NAME AND NUMBER YOU WERE GIVEN, OR RETURN TO THE ED IMMEDIATELY. MILAN CLEMENS APRN Feb 01, 2021 10:34 IRIS LUCAS DO Feb 03, 2021 09:56
[2021-02-01 10:40] LABS: BASO % 1 % (0-3); EOS # 0.1 x10^3/uL (0.0-0.7); EOS % 1 % (0-3); HEMATOCRIT 34.4 % (36.0-47.0); HEMOGLOBIN 11.3 g/dL (12.0-15.5); LYMPH # 1.6 x10^3/uL (1.0-4.8); LYMPH % 26 % (24-48); MEAN CORPUSCULAR HEMOGLOBIN 29 pg (25-35); MEAN CORPUSCULAR HGB CONC 33 g/dL (31-37); MEAN CORPUSCULAR VOLUME 87 fL (79-100); MONO # 0.4 x10^3/uL (0.0-1.1); MONO % 7 % (0-9); NEUT # 4.1 x10^3uL (1.8-7.7); NEUT % 66 % (31-73); PLATELET COUNT 281 x10^3/uL (140-400); RED BLOOD COUNT 3.93 x10^6/uL (3.50-5.40); RED CELL DISTRIBUTION WIDTH 14.3 % (11.5-14.5); WHITE BLOOD COUNT 6.1 x10^3/uL (4.0-11.0)
[2021-02-01] MEDS ORDERED: CONTRAST GIVEN. MC PRN (10:45)
[2021-02-01] MEDS ORDERED: IOHEXOL 300 MG/ML 75 ML VIAL. IV ONE (10:45)
[2021-02-01 10:52] LABS: BACTERIA,URINE 0 /HPF (0-FEW); BILIRUBIN,URINE NEG (NEG); CLARITY,URINE CLEAR; COLOR,URINE YELLOW; GLUCOSE,URINE NEG (NEG); NITRITE,URINE NEG (NEG); RBC,URINE 0 /HPF (0-2); SQUAMOUS EPITHELIAL CELL,UR FEW /LPF; UROBILINOGEN,URINE 0.2 mg/dL (0.2 mg/dL); WBC,URINE OCC /HPF (0-4)
[2021-02-01 10:55] LABS: CALCIUM 8.3 mg/dL (8.5-10.1); CREATININE 0.8 mg/dL (0.6-1.0); GFR 81.2; POTASSIUM 3.9 mmol/L (3.5-5.1)
[2021-02-01 11:00] LABS: ALBUMIN 3.4 g/dL (3.4-5.0); ALBUMIN/GLOBULIN RATIO 1.1 (1.0-1.7); TOTAL BILIRUBIN 0.2 mg/dL (0.2-1.0); TOTAL PROTEIN 6.6 g/dL (6.4-8.2)
[2021-02-01 11:04] LABS: FECAL OB PT NEGATIVE (NEG)
--- NOTE | 2021-02-01 11:26 | RAD ---
CT ABDOMEN+PELVIS W History: Reason: diarrhea, blood in stools / Spl. Instructions: / History: Technique: CT abdomen pelvis with contrast. Coronal and sagittal reconstructions were performed. Exposure: One or more of the following individualized dose reduction techniques were utilized for thi s examination: 1. Automated exposure control 2. Adjustment of the mA and/or kV according to patient size 3. Use of iterative reconstruction technique. Comparison: None Findings: Lower chest: Mild left lower lobe and lingular linear atelectasis. Abdomen and pelvis: Postoperative changes gastric bypass. Minimal fluid within the gastric remnant. T he liver, spleen, adrenal glands, and pancreas are unremarkable. Prior cholecystectomy. Mild intrahep atic biliary ductal dilatation, likely within normal range for postcholecystectomy state. Small right renal hypodensities measures 0.4 cm, likely cysts. No hydronephrosis. No renal calculus. Decompressed urinary bladder. Normal appendix. No evidence of bowel obstruction. No pathologic lymphadenopathy. No ascites. IUD not ed within the upper endometrial canal. Several small follicles within the ovaries. Bones: Heterogeneous appearance of the left superior pubic ramus and pubic body. No acute fracture. M ultilevel lumbar spinal stenosis most prominent L3-L4 and L4-L5. Impression: 1. No acute abdominal or pelvic pathology. Electronically signed by: Les Lou DO (02/01/2021 11:23 AM) [id number]
[2021-02-01 11:49] VITALS: BP 127/86
== END 2021-02-01 12:00 | disposition home or self-care (01) ==
LOC: ER 09:27
DX: K92.1 Melena (principal); F15.10 Other stimulant abuse, uncomplicated; F12.10 Cannabis abuse, uncomplicated; F14.10 Cocaine abuse, uncomplicated; Z88.5 Allergy status to narcotic agent; Z90.49 Acquired absence of other specified parts of digestive tract; Z87.891 Personal history of nicotine dependence
CPT/HCPCS: 36415; 74177; 80053; 81001; 81025; 82274; 85025; 96360; 99285; J7030

== ENCOUNTER 2021-09-13 14:52 | Emergency (ER) | payer MEDICAID ==
[~2021-09-13] VITALS: Ht 167.6 cm; Wt 79.7 kg
[2021-09-13] MEDS ORDERED: ONDANSETRON PF 4 MG/2 ML VIAL. IVP ONE ×2 (15:45→20:00)
[2021-09-13] MEDS ORDERED: IV NORMAL SALINE 1,000ML 1,000 ML IV ONE (15:45)
[2021-09-13] MEDS ORDERED: IOHEXOL 300 MG/ML 75 ML VIAL. IV ONE (16:00)
--- NOTE | 2021-09-13 16:08 | PHYS DOC ---
Past History Past Medical History: Migraines, Pneumonia, Other Additional Past Medical Histor: chronic back (RM GE MD) Past Surgical History: Cholecystectomy, , Gastric Bypass, Other Additional Past Surgical Histo: thoracotomy (RM GE MD) Smoking: Quit Greater Than 1 Year Alcohol Use: None Drug Use: Amphetamine, Heroin, Marijuana, Opiates (RM GE MD) General Adult EDM: Chief Complaint: WEAKNESS/GENERALIZED HPI: HPI: Patient is a 35-year-old female coming in for vomiting for the past 6 months. Patient has had unintentional weight loss of 60 to 70 pounds over the past 6 months. States she had had a couple episodes of coffee-ground emesis. Patient states that she vomits about 3 times a day. Has had decreased urine and bowel movements, last bowel movement 2 days ago. Patient says she is in epigastric Rolo pain. Denies any NSAID use. Has a history of gastric bypass 4 years ago, did not have a problem till 6 months ago. Says she has been having cold intolerance, denies any night sweats, hot flashes or fevers. Patient says she vapes but denies any alcohol or drug use. (RM GE MD) Review of Systems: Review of Systems: All other systems within normal limits except for as noted in the HPI (RM GE MD) Current Medications: Current Meds: Current Medications Medications (Trade) Dose Ordered Sig/Morgan Start Time Stop Time Status Last Admin Dose Admin Iohexol (Omnipaque 300 Mg/ml) 75 ml 1X ONCE 09/13/21 16:00 09/13/21 16:01 UNV Ondansetron HCl (Zofran) 4 mg 1X ONCE 09/13/21 15:45 09/13/21 15:47 DC Sodium Chloride 1,000 ml @ 1,000 mls/hr 1X ONCE 09/13/21 15:45 09/13/21 16:44 (RM GE MD) Allergies: Allergies: Allergies Coded Allergies Type Severity Reaction Last Updated Verified morphine Allergy Intermediate rash 08/04/18 Yes Uncoded Allergies Type Severity Reaction Last Updated Verified NARCOTIC Adverse Reaction Unknown 06/09/15 (RM GE MD) Physical Exam: PE: Constitutional: Well developed, well nourished, no acute distress, non-toxic appearance. [] HENT: Normocephalic, atraumatic, bilateral external ears normal, nose normal. [] Eyes: PERRLA, conjunctiva normal, no discharge. [] Neck: No rigidity, supple, no stridor. [] Cardiovascular: Regular rate and rhythm, brisk cap refill [] Lungs & Thorax: Non labored symmetric respirations, no tachypnea or respiratory distress [] Abdomen: Soft, nondistended, epigastric tender Skin: Warm, dry, no erythema, no rash. [] Back: Unremarkable Extremities: No deformities, range of motion grossly intact, no lower extremity edema [] Neurologic: Alert and oriented X 3, no focal deficits noted. [] Psychologic: Affect normal, judgement normal, mood normal. [] (RM GE MD) EKG: EKG: [] (RM GE MD) Radiology/Procedures: Radiology/Procedures: [place] [address] IMAGING REPORT Signed PATIENT: RAMONITA DELCIDACCOUNT: [id number] : 1985 LOCATION: ER AGE: 35 SEX: F EXAM STATUS: REG ER ORD. PHYSICIAN: RM GE MD REASON: vomiting, unintentional weight loss, headaches PROCEDURE: CT HEAD WO CONTRAST CT Head W/O Contrast: History: Reason: vomiting, unintentional weight loss, headaches / Spl. Instructions: / History: Comparison: August 02, 2018 Axial images were obtained without contrast. There is mild diffuse atrophy. There is no mass effect, extraaxial fluid collections or hydrocephalus. There is no focal loss of erazo-white matter distinction to suggest acute ischemia, i.e. stroke. Impression: Mild cerebral atrophy is advanced for the patient's age. Otherwise no acute findings. End of impression PQRS Compliance Statement: One or more of the following individualized dose reduction techniques were utilized for this examination: 1. Automated exposure control 2. Adjustment of the mA and/or kV according to patient size 3. Use of iterative reconstruction technique Electronically signed by: Clair Honeycutt III, MD (09/13/2021 4:54 PM) [facility] DICTATED AND SIGNED BY: CLAIR HONEYCUTT III, MD DATE: 09/13/21 165 CC: RM GE MD; PCP,UNKNOWN ~ [][place] [address] IMAGING REPORT Signed PATIENT: RAMONITA DELCIDACCOUNT: [id number] : 1985 LOCATION: ER AGE: 35 SEX: F EXAM STATUS: REG ER ORD. PHYSICIAN: RM GE MD REASON: vomiting, unintentional weight lossof 70 lbs -75 ml omni 300 iv- PROCEDURE: CT ABD PELV W/ IV CONTRST ONLY EXAMINATION: CT abdomen and pelvis with IV contrast. INDICATION:35 years, Female, vomiting, and unintentional weight loss. TECHNIQUE: Axial CT images of the abdomen and pelvis were obtained. Coronal and sagittal reformatted performed. COMPARISON: 02/01/2021. Exposure: One or more of the following individualized dose reduction techniques were utilized for this examination: 1. Automated exposure control 2. Adjustment of the mA and/or kV according to patient size 3. Use of iterative reconstruction technique. FINDINGS: LOWER CHEST: Linear scarring in the lingula and left lower lobe. ABDOMEN/PELVIS: Post Surinder-en-Y gastric bypass changes. No bowel dilation. Focal wall thickening of the proximal ascending colon with minimal adjacent fat stranding. Proximal a ppendix appears normal. No suspicious focal hepatic lesion. Cholecystectomy. Prominent central intrahepatic and extrahepatic biliary ducts with smooth tapering distally. Unremarkable pancreas and adrenal glands. No hydronephrosis in either kidney. Unchanged subcentimeter hypodensity in the interpolar right, too small to characterize. Normal caliber abdominal aorta. Mesenteric arteries and portal veins are patent. No lymphadenopathy in the abdomen or pelvis by size criteria. Anteverted uterus with IUD in place. Unremarkable urinary bladder. MUSCULOSKELETAL STRUCTURES: No acute osseous process. Severe degenerative changes at L3-4 and L4-5. Unchanged focal sclerosis of the left superior pubic ramus. IMPRESSION: 1. Focal wall thickening of the proximal ascending colon with minimal adjacent fat stranding could be due to focal colitis or neoplasm. Recommend colonoscopy follow-up. 2. Post Surinder-en-Y gastric bypass changes. No bowel dilation. Electronically signed by: Shruti Boss MD (09/13/2021 5:15 PM) [facility] DICTATED AND SIGNED BY: SHRUTI BOSS MD DATE: 09/13/21 1700 CC: RM GE MD; PCP,UNKNOWN ~ (RM GE MD) Radiology/Procedures: [place] [address] IMAGING REPORT Signed PATIENT: RAMONITA DELCIDACCOUNT: [id number] : 1985 LOCATION: ER AGE: 35 SEX: F EXAM STATUS: REG ER ORD. PHYSICIAN: RM GE MD REASON: vomiting, unintentional weight lossof 70 lbs -75 ml omni 300 iv- PROCEDURE: CT ABD PELV W/ IV CONTRST ONLY EXAMINATION: CT abdomen and pelvis with IV contrast. INDICATION:35 years, Female, vomiting, and unintentional weight loss. TECHNIQUE: Axial CT images of the abdomen and pelvis were obtained. Coronal and sagittal reformatted performed. COMPARISON: 02/01/2021. Exposure: One or more of the following individualized dose reduction techniques were utilized for this examination: 1. Automated exposure control 2. Adjustment of the mA and/or kV according to patient size 3. Use of iterative reconstruction technique. FINDINGS: LOWER CHEST: Linear scarring in the lingula and left lower lobe. ABDOMEN/PELVIS: Post Surinder-en-Y gastric bypass changes. No bowel dilation. Focal wall thickening of the proximal ascending colon with minimal adjacent fat stranding. Proximal appendix appears normal. No suspicious focal hepatic lesion. Cholecystectomy. Prominent central intrahepatic and extrahepatic biliary ducts with smooth tapering distally. Unremarkable pancreas and adrenal glands. No hydronephrosis in either kidney. Unchanged subcentimeter hypodensity in the interpolar right, too small to characterize. Normal caliber abdominal aorta. Mesenteric arteries and portal veins are patent. No lymphadenopathy in the abdomen or pelvis by size criteria. Anteverted uterus with IUD in place. Unremarkable urinary bladder. MUSCULOSKELETAL STRUCTURES: No acute osseous process. Severe degenerative changes at L3-4 and L4-5. Unchanged focal sclerosis of the left superior pubic ramus. IMPRESSION: 1. Focal wall thickening of the proximal ascending colon with minimal adjacent fat stranding could be due to focal colitis or neoplasm. Recommend colonoscopy follow-up. 2. Post Surinder-en-Y gastric bypass changes. No bowel dilation. Electronically signed by: Shruti Boss MD (09/13/2021 5:15 PM) [facility] DICTATED AND SIGNED BY: SHRUTI BOSS MD DATE: 09/13/21 1700 CC: RM GE MD; PCP,UNKNOWN ~ [place] [address] IMAGING REPORT Signed PATIENT: RAMONITA DELCIDACCOUNT: [id number] : 1985 LOCATION: ER AGE: 35 SEX: F EXAM STATUS: REG ER ORD. PHYSICIAN: RM GE MD REASON: vomiting, unintentional weight loss, headaches PROCEDURE: CT HEAD WO CONTRAST CT Head W/O Contrast: History: Reason: vomiting, unintentional weight loss, headaches / Spl. Instructions: / History: Comparison: August 02, 2018 Axial images were obtained without contrast. There is mild diffuse atrophy. There is no mass effect, extraaxial fluid collections or hydrocephalus. There is no focal loss of erazo-white matter distinction to suggest acute ischemia, i.e. stroke. Impression: Mild cerebral atrophy is advanced for the patient's age. Otherwise no acute findings. End of impression PQRS Compliance Statement: One or more of the following individualized dose reduction techniques were utilized for this examination: 1. Automated exposure control 2. Adjustment of the mA and/or kV according to patient size 3. Use of iterative reconstruction technique Electronically signed by: Clair Honeycutt III, MD (09/13/2021 4:54 PM) [facility] DICTATED AND SIGNED BY: CLAIR HONEYCUTT III, MD DATE: 09/13/21 1651 CC: RM GE MD; PCP,UNKNOWN ~ (JEANIE SANCHEZ MD) Heart Score: C/O Chest Pain: No Risk Factors: Risk Factors: DM, Current or recent (<one month) smoker, HTN, HLP, family history of CAD, obesity. Risk Scores: Score 0 - 3: 2.5% MACE over next 6 weeks - Discharge Home Score 4 - 6: 20.3% MACE over next 6 weeks - Admit for Clinical Observation Score 7 - 10: 72.7% MACE over next 6 weeks - Early Invasive Strategies (RM GE MD) Course & Med Decision Making: Course & Med Decision Making Pertinent Labs and Imaging studies reviewed. (See chart for details) Patient pending UA results at shift change. Discussed findings of colitis/bowel wall thickening with patient being infectious versus neoplasm. Patient does not know her family history is unknown if she has a family history of cancer. Patient denies any prior colonoscopies. Discussed follow-up with GI. [] (RM GE MD) Course & Med Decision Making See Dr. Ge chart for details prior shift change. Pt. to stay on a clear fluid diet only for the next 2 days. No solids. No milk products. Clear fluids only allow bowel rest. Take Cipro 500 twice a day and take Flagyl 500-3 times a day. Patient to take Zofran 8 mg at 4 times a day for active vomiting. Patient to follow-up with GI and get a colonoscopy to evaluate for colitis infectious versus inflammatory infectious versus neoplastic. If patient still having having pain we can stimulate clear fluid diet only. Take Tylenol and ibuprofen for pain. Follow-up primary care. Return if any concerns. Impression: 1. Abdomen pain 2. Ascending colitis-inflammatory versus infectious versus neoplastic 3. [id number]-for weight loss 2017 (JEANIE SANCHEZ MD) Dragon Disclaimer: Dragon Disclaimer: This electronic medical record was generated, in whole or in part, using a voice recognition dictation system. (RM GE MD) Departure Departure: Impression: Primary Impression: Colitis Disposition: HOME / SELF CARE / HOMELESS Condition: STABLE Referrals: DUNIA MENA MD Patient Instructions: Nausea and Vomiting Additional Instructions: Call to make an appointment with Dr. Samaniego on Wednesday for a follow-up colonoscopy. Scripts Ondansetron Hcl (ONDANSETRON HCL) 4 Mg Tablet 8 MG PO QIDPRN PRN for n, #30 TAB Prov: JEANIE SANCHEZ MD 09/13/21 Metronidazole (FLAGYL) 375 Mg Capsule 500 MG PO TID for colitis for 10 Days, #40 CAP Prov: JEANIE SANCHEZ MD 09/13/21 Ciprofloxacin (CIPRO) 500 Mg/5 Ml Ofelia.mc.rec 500 MG PO BID for colitis for 7 Days, MISC Prov: JEANIE SANCHEZ MD 09/13/21 Anayeli Disclaimer This chart was dictated in whole or in part using Voice Recognition software in a busy, high-work load, and often noisy Emergency Department environment. It may contain unintended and wholly unrecognized errors or omissions. (JEANIE SANCHEZ MD) RM GE MD Sep 13, 2021 16:08 JEANIE SANCHEZ MD Sep 13, 2021 18:10
[2021-09-13 16:50] LABS: BASO # 0.1 x10^3/uL (0.0-0.2); BASO % 1 % (0-3); EOS # 0.1 x10^3/uL (0.0-0.7); EOS % 2 % (0-3); HEMATOCRIT 34.9 % (36.0-47.0); LYMPH # 1.7 x10^3/uL (1.0-4.8); LYMPH % 35 % (24-48); MEAN CORPUSCULAR HEMOGLOBIN 24 pg (25-35); MEAN CORPUSCULAR HGB CONC 32 g/dL (31-37); MEAN CORPUSCULAR VOLUME 77 fL (79-100); MONO # 0.3 x10^3/uL (0.0-1.1); MONO % 6 % (0-9); NEUT # 2.8 x10^3uL (1.8-7.7); NEUT % 57 % (31-73); PLATELET COUNT 283 x10^3/uL (140-400); RED BLOOD COUNT 4.51 x10^6/uL (3.50-5.40)
--- NOTE | 2021-09-13 16:56 | RAD ---
CT Head W/O Contrast: History: Reason: vomiting, unintentional weight loss, headaches / Spl. Instructions: / History: Comparison: August 02, 2018 Axial images were obtained without contrast. There is mild diffuse atrophy. There is no mass effect, extraaxial fluid collections or hydrocephalu s. There is no focal loss of erazo-white matter distinction to suggest acute ischemia, i.e. stroke. Impression: Mild cerebral atrophy is advanced for the patient's age. Otherwise no acute findings. End of impression PQRS Compliance Statement: One or more of the following individualized dose reduction techniques were utilized for this examinat ion: 1. Automated exposure control 2. Adjustment of the mA and/or kV according to patient size 3. Use of iterative reconstruction technique Electronically signed by: Romulo Marin III, MD (09/13/2021 4:54 PM) [facility]
[2021-09-13 17:00] VITALS: BP 113/86
[2021-09-13 17:08] LABS: CALCIUM 8.5 mg/dL (8.5-10.1); CREATININE 0.8 mg/dL (0.6-1.0); GFR 81.2; POTASSIUM 3.5 mmol/L (3.5-5.1)
--- NOTE | 2021-09-13 17:17 | RAD ---
EXAMINATION: CT abdomen and pelvis with IV contrast. INDICATION:35 years, Female, vomiting, and unintentional weight loss. TECHNIQUE: Axial CT images of the abdomen and pelvis were obtained. Coronal and sagittal reformatted performed. COMPARISON: 02/01/2021. Exposure: One or more of the following individualized dose reduction techniques were utilized for thi s examination: 1. Automated exposure control 2. Adjustment of the mA and/or kV according to patient size 3. Use of iterative reconstruction technique. FINDINGS: LOWER CHEST: Linear scarring in the lingula and left lower lobe. ABDOMEN/PELVIS: Post Surinder-en-Y gastric bypass changes. No bowel dilation. Focal wall thickening of the proximal ascen ding colon with minimal adjacent fat stranding. Proximal appendix appears normal. No suspicious focal hepatic lesion. Cholecystectomy. Prominent central intrahepatic and extrahepatic biliary ducts with smooth tapering distally. Unremarkable pancreas and adrenal glands. No hydronephro sis in either kidney. Unchanged subcentimeter hypodensity in the interpolar right, too small to frandy cterize. Normal caliber abdominal aorta. Mesenteric arteries and portal veins are patent. No lymphade nopathy in the abdomen or pelvis by size criteria. Anteverted uterus with IUD in place. Unremarkable urinary bladder. MUSCULOSKELETAL STRUCTURES: No acute osseous process. Severe degenerative changes at L3-4 and L4-5. Unchanged focal sclerosis of the left superior pubic ramus. IMPRESSION: 1. Focal wall thickening of the proximal ascending colon with minimal adjacent fat stranding could b e due to focal colitis or neoplasm. Recommend colonoscopy follow-up. 2. Post Surinder-en-Y gastric bypass changes. No bowel dilation. Electronically signed by: Pavel Boss MD (09/13/2021 5:15 PM) [facility]
[2021-09-13 17:23] LABS: ALBUMIN 3.2 g/dL (3.4-5.0); ALBUMIN/GLOBULIN RATIO 1.1 (1.0-1.7); MAGNESIUM 2.4 mg/dL (1.8-2.4); PHOSPHORUS 3.8 mg/dL (2.6-4.7); TOTAL BILIRUBIN 0.2 mg/dL (0.2-1.0); TOTAL PROTEIN 6.2 g/dL (6.4-8.2)
[2021-09-13] MEDS ORDERED: KETOROLAC 15 MG/ML VIAL. IVP ONE (17:45)
[2021-09-13 18:11] LABS: AMPHETAMINE/METHAMPHETAMINE POS (NEG); BARBITURATES NEG (NEG); BENZODIAZEPINES NEG (NEG); CANNABINOIDS POS (NEG); COCAINE NEG (NEG); METHADONE NEG (NEG); OPIATES NEG (NEG); PHENCYCLIDINE NEG (NEG)
[2021-09-13 18:13] LABS: CLARITY,URINE CLEAR; COLOR,URINE YELLOW; GLUCOSE,URINE NEG (NEG); NITRITE,URINE NEG (NEG); UROBILINOGEN,URINE 0.2 mg/dL (0.2 mg/dL)
[2021-09-13 18:14] LABS: BACTERIA,URINE 0 /HPF (0-FEW); SQUAMOUS EPITHELIAL CELL,UR FEW /LPF; WBC,URINE 0 /HPF (0-4)
[2021-09-13] MEDS ORDERED: ONDA-84 PO (19:34)
[2021-09-13] MEDS ORDERED: METR375C PO (19:34)
[2021-09-13] MEDS ORDERED: CIPR500S2 PO (19:34)
[2021-09-13] MEDS ORDERED: IV NORMAL SALINE 50ML 50 ML ONE (19:46)
[2021-09-13] MEDS ORDERED: ONDANSETRON PF 4 MG/2 ML VIAL. ONE (19:46)
[2021-09-13] MEDS ORDERED: metroNIDAZOLE 500 MG TABLET ONE (19:47)
[2021-09-13] MEDS ORDERED: cefTRIAXone SODIUM 1 GM VIAL ONE (19:47)
[2021-09-13] MEDS ORDERED: metroNIDAZOLE 500 MG TABLET PO ONE (20:00)
== END 2021-09-13 20:05 | disposition home or self-care (01) ==
LOC: ER 14:52
DX: K52.9 Noninfective gastroenteritis and colitis, unspecified (principal); G43.909 Migraine, unspecified, not intractable, without status migrainosus; Z87.891 Personal history of nicotine dependence; Z90.49 Acquired absence of other specified parts of digestive tract; Z98.890 Other specified postprocedural states; Z98.84 Bariatric surgery status; Z88.5 Allergy status to narcotic agent
CPT/HCPCS: 36415; 70450; 74177; 80053; 80307; 81001; 83605; 83690; 83735; 83880; 84100; 84443; 85025; 96361; 96374; 96375; 96376; 99285; J0696; J1885; J2405; J7030; Q9967

== ENCOUNTER → 2021-10-17 | Outpatient (CLI) | payer MEDICAID ==
[~2021-10-17] MED LIST changes: +CIPR500S2 PO; +METR375C PO; +ONDA-84 PO
--- NOTE | 2021-10-17 13:49 | RAD ---
Exam Date: 10/17/2021 9:12 AM DG UGI W/O KUB Indication: Reason: POST GASTRIC BYPASS STRICTURE 1.2 MIN OF FLUORO / Spl. Instructions: / History: . PROCEDURE: A brush loader and handle attacher film was obtained. A single contrast barium upper GI exam was performed under fl uoroscopic control. Multiple spot films were obtained of the upper GI tract. FINDINGS: UPPER GI: The esophagus is normal in course, contour, and distensibility. Postoperative changes of gastric bypass are noted. Contrast extends beyond the stomach into the proximal small bowel without evidence for obstruction or leak. Severe gastroesophageal reflux was seen spontaneously to the level of the thoracic inlet. The visualized proximal small bowel folds appear normal without mass, strict ures or diverticula. IMPRESSION: Postoperative changes of gastric bypass are noted without evidence for obstruction or leak. Severe g astroesophageal reflux was seen spontaneously to the level of the thoracic inlet. Total fluoroscopy time: 1.2 minutes Fluoroscopic images: 13 Electronically signed by: Brayan Nix MD (10/17/2021 1:47 PM) [id number]
== END ==
LOC: DXRAD 08:44
PROVIDERS: ATTEND Internal Medicine Gastroenterology
DX: K21.9 Gastro-esophageal reflux disease without esophagitis (principal); Z98.84 Bariatric surgery status
CPT/HCPCS: 74240